=== PATIENT | female | born 1945 | race Caucasian/White ===

== ENCOUNTER 2022-12-05 21:54 | Observation (INO) | payer MEDICARE, MEDICAID ==
[2022-12-05 23:18] LABS: BASOPHILS ABSOLUTE AUTO 0.02 K/mm3 (0.01-0.08); BASOPHILS PERCENT AUTO 0.3 % (0.1-1.2); EOSINOPHILS ABSOLUTE AUTO 0.11 K/mm3 (0.04-0.36); EOSINOPHILS PERCENT AUTO 1.4 (0.7-5.8); HEMATOCRIT 37.5 % (34.1-44.9); HEMOGLOBIN 12.1 gm/dl (11.2-15.7); IMMATURE GRAN ABSOLUTE AUTO 0.02 K/mm3 (0.00-0.10); IMMATURE GRAN PERCENT AUTO 0.3 % (<=1.0); LYMPHOCYTES ABSOLUTE AUTO 1.22 K/mm3 (1.18-3.74); LYMPHOCYTES PERCENT AUTO 15.8 % (19.3-51.7); MEAN CORPUSCULAR HEMOGLOBIN 30.4 pg (25.6-32.2); MEAN CORPUSCULAR HGB CONC 32.3 g/dl (32.2-35.5); MEAN CORPUSCULAR VOLUME 94.2 fl (79.4-94.8); MEAN PLATELET VOLUME 9.3 fl (9.4-12.3); MONOCYTES ABSOLUTE AUTO 0.74 K/mm3 (0.24-0.36); MONOCYTES PERCENT AUTO 9.6 % (4.7-12.5); NEUTROPHILS PERCENT AUTO 72.6 % (34.0-71.1); PLATELET COUNT,PLT 205 K/mm3 (182-369); RED BLOOD CELL COUNT 3.98 M/mm3 (3.98-5.22); WHITE BLOOD CELL COUNT,WBC 7.71 K/mm3 (3.98-10.04)
[2022-12-05 23:39] LABS: ALBUMIN 3.5 g/dl (3.4-5.0); ANION GAP 12.1 (5-15); BILIRUBIN TOTAL 0.4 mg/dL (0.2-1.0); EST CRCL DRUG DOSING (CG) 47.27 mL/min; MAGNESIUM 1.3 mg/dL (1.8-2.4); POTASSIUM,K 4.1 mEq/L (3.5-5.1)
[2022-12-05 23:54] LABS: APPEARANCE,URINE CLEAR (Clear); BILIRUBIN,URINE NEGATIVE (Negative); COLOR,URINE LIGHT YELLOW (Yellow); GLUCOSE,URINE NEGATIVE (Negative); KETONES,URINE NEGATIVE (Negative); LEUKOCYTE ESTERASE,URINE TRACE (Negative); NITRITE,URINE NEGATIVE (Negative); OCCULT BLOOD,URINE 1+ (Negative); PROTEIN,URINE NEGATIVE (Negative); UROBILINOGEN,URINE 0.2 (0.2-1.0)
[2022-12-06 00:02] LABS: C-REACTIVE PROTEIN <0.2 mg/dL (<1.0); TROPONIN I HIGH SENSITIVITY 29 pg/mL (<=51)
[2022-12-06 00:04] LABS: BACTERIA,URINE FEW /hpf (FEW); MUCUS,URINE NOT SEEN /hpf (FEW); WBC,URINE 0-5 /hpf (0-5)
[2022-12-06] MEDS ORDERED: Temazepam 15 MG Cap PO PRN (08:00)
[2022-12-06] MEDS ORDERED: Sodium Chloride 0.9% 10 ML Syringe FLUSH PRN (08:00)
[2022-12-06] MEDS: Insulin Regular, Human 100 Units/ML 3 ML Vial SUBCUT SCH ×3 (10:19→19:35)
[2022-12-06] MEDS: Heparin Sodium 5,000 Units/ML Vial SUBCUT SCH ×2 (10:19→16:13)
[2022-12-06] MEDS ORDERED: Albuterol 0.083% 2.5 MG/3 ML Neb Soln INH PRN (11:32)
[2022-12-06] MEDS ORDERED: Albuterol 6.7 GM Inhaler INH PRN (11:33)
[2022-12-06] MEDS ORDERED: Chlorthalidone 25 MG Tab PO SCH (12:00)
[2022-12-06] MEDS: Gabapentin 300 MG Cap PO SCH (12:45)
[2022-12-06] MEDS: TELMISARTAN 20 MG PO SCH (12:45)
[2022-12-06] MEDS: Acetaminophen/oxyCODONE 325-5 MG Tab PO PRN ×2 (12:46→20:40)
[2022-12-06] MEDS ORDERED: Hydrochlorothiazide 25 MG Tab PO ONE (15:35)
[2022-12-06] MEDS: Acetaminophen 325 MG Tab PO PRN (18:11)
[2022-12-06] MEDS: SLOWMAG PO SCH (20:37)
[2022-12-06] MEDS ORDERED: atorvaSTATin 40 MG Tab PO SCH (21:00)
[2022-12-06] MEDS ORDERED: ATORVASTATIN 40 MG PO SCH (21:00)
[2022-12-06] MEDS ORDERED: Latanoprost 0.005% Ophth Soln 2.5 ML Bottle **PTOM EYEBOTH SCH (21:00)
[2022-12-07] MEDS: Heparin Sodium 5,000 Units/ML Vial SUBCUT SCH ×2 (00:11→08:24)
[2022-12-07] MEDS: Acetaminophen/oxyCODONE 325-5 MG Tab PO PRN (03:13)
[2022-12-07 05:21] LABS: BASOPHILS ABSOLUTE AUTO 0.02 K/mm3 (0.01-0.08); BASOPHILS PERCENT AUTO 0.5 % (0.1-1.2); EOSINOPHILS ABSOLUTE AUTO 0.13 K/mm3 (0.04-0.36); HEMATOCRIT 36.2 % (34.1-44.9); HEMOGLOBIN 11.5 gm/dl (11.2-15.7); LYMPHOCYTES ABSOLUTE AUTO 1.38 K/mm3 (1.18-3.74); LYMPHOCYTES PERCENT AUTO 31.9 % (19.3-51.7); MEAN CORPUSCULAR HGB CONC 31.8 g/dl (32.2-35.5); MEAN CORPUSCULAR VOLUME 94.5 fl (79.4-94.8); MEAN PLATELET VOLUME 9.5 fl (9.4-12.3); MONOCYTES ABSOLUTE AUTO 0.42 K/mm3 (0.24-0.36); MONOCYTES PERCENT AUTO 9.7 % (4.7-12.5); NEUTROPHILS ABSOLUTE AUTO 2.37 K/mm3 (1.56-6.13); NEUTROPHILS PERCENT AUTO 54.9 % (34.0-71.1); PLATELET COUNT,PLT 169 K/mm3 (182-369); RED BLOOD CELL COUNT 3.83 M/mm3 (3.98-5.22); WHITE BLOOD CELL COUNT,WBC 4.32 K/mm3 (3.98-10.04)
[2022-12-07 05:49] LABS: A/G RATIO 0.9 (1-2); ALBUMIN 3.1 g/dl (3.4-5.0); ANION GAP 11.6 (5-15); BILIRUBIN TOTAL 0.4 mg/dL (0.2-1.0); BUN/CREATININE RATIO 15.6 (14-18); CALCIUM 8.7 mg/dL (8.5-10.1); CREATININE 0.9 mg/dL (0.55-1.02); EST CRCL DRUG DOSING (CG) 52.52 mL/min; POTASSIUM,K 3.6 mEq/L (3.5-5.1); PROTEIN TOTAL,TP 6.4 g/dl (6.4-8.2)
[2022-12-07] MEDS: Acetaminophen 325 MG Tab PO PRN ×2 (06:19→10:26)
[2022-12-07] MEDS: Insulin Regular, Human 100 Units/ML 3 ML Vial SUBCUT SCH (08:25)
[2022-12-07] MEDS: Gabapentin 300 MG Cap PO SCH (08:26)
[2022-12-07] MEDS: TELMISARTAN 20 MG PO SCH (08:28)
[2022-12-07] MEDS: SLOWMAG PO SCH (08:30)
[2022-12-07] MEDS ORDERED: Hydrochlorothiazide 12.5 MG Cap PO SCH (09:00)
[2022-12-07] MEDS ORDERED: Loratadine 10 MG Tab PO SCH (09:00)
[2022-12-07] MEDS ORDERED: Chlorthalidone 25 MG Tab PO SCH (09:00)
[2022-12-07] MEDS ORDERED: Cholecalciferol (Vitamin D3) 5,000 UNIT Cap PO SCH (09:00)
[2022-12-07] MEDS ORDERED: Fish Oil/Omega-3 Fatty Acids 1 Gm Cap PO SCH (09:00)
[2022-12-07] MEDS ORDERED: Cholecalciferol (Vitamin D3) 5,000 UNIT Tab PO SCH (09:00)
== END 2022-12-07 12:26 | disposition home or self-care (01) ==
LOC: JD.ED 21:54 → JD.MS 12-06 09:06
PROVIDERS: ADMIT Internal Medicine; ATTEND Internal Medicine
DX: M54.16 Radiculopathy, lumbar region (principal); E11.9 Type 2 diabetes mellitus without complications; I10 Essential (primary) hypertension; M17.0 Bilateral primary osteoarthritis of knee; R53.1 Weakness; E83.42 Hypomagnesemia; E78.00 Pure hypercholesterolemia, unspecified; E66.9 Obesity, unspecified; E11.42 Type 2 diabetes mellitus with diabetic polyneuropathy; Z68.37 Body mass index [BMI] 37.0-37.9, adult; Z79.899 Other long term (current) drug therapy; Z79.84 Long term (current) use of oral hypoglycemic drugs; Z88.6 Allergy status to analgesic agent; Z88.5 Allergy status to narcotic agent; Z90.49 Acquired absence of other specified parts of digestive tract; Z20.822 Contact with and (suspected) exposure to COVID-19; Z86.16 Personal history of COVID-19; Z87.891 Personal history of nicotine dependence; Z98.890 Other specified postprocedural states
CPT/HCPCS: 36415; 80053; 81001; 82947; 83735; 84443; 84484; 85025; 85379; 86140; 93005; 96372; 97116; 97161; 97166; 97530; 99285; A9270; G0378; J1644; J1815; U0002; J3490